=== PATIENT | female | born 1970 | race Caucasian/White ===

== ENCOUNTER 2022-05-17 07:24 | Day surgery (SDC) | payer OTHER ==
[2022-05-17] MEDS ORDERED: Propofol 200 MG/20 ML SDV ONE (07:50)
[2022-05-17] MEDS ORDERED: fentaNYL 50 MCG/ML SDV ONE (07:50)
[2022-05-17] MEDS ORDERED: Midazolam 1 MG/ML 2 ML SDV ONE (07:50)
[2022-05-17] MEDS ORDERED: Cyanocobalamin (Vitamin B12) 1,000 MCG/ML SDV IM ONE (08:15)
[2022-05-17] MEDS ORDERED: Lactated Ringers 1,000 ML IV SCH (08:15)
[2022-05-17] MEDS ORDERED: Glycopyrrolate 0.2 MG/ML 2 ML SDV IVPUSH ONE (08:45)
[2022-05-17] MEDS ORDERED: MVI, Adult with Vitamin K 10 ML, Thiamine 200 MG, Zinc/Copper/Manganese/Selenium 1 ML i... IV ONE ×4 (09:15)
[2022-05-17] MEDS ORDERED: Benzocaine/Cetylpyridinium/Menthol Lozenge MUCMEM PRN (10:34)
== END 2022-05-17 10:57 | disposition home or self-care (01) ==
LOC: JP.SDS 07:24
PROVIDERS: ATTEND Surgery
DX: K21.9 Gastro-esophageal reflux disease without esophagitis (principal); K44.9 Diaphragmatic hernia without obstruction or gangrene; F32.A Depression, unspecified; F41.1 Generalized anxiety disorder; E66.9 Obesity, unspecified; Z68.41 Body mass index [BMI] 40.0-44.9, adult; Z95.5 Presence of coronary angioplasty implant and graft; Z98.84 Bariatric surgery status; Z79.899 Other long term (current) drug therapy; Z91.040 Latex allergy status
CPT/HCPCS: 43239; 87081; J2250; J2704; J3010; J3411; J3420; J3490; J7120

== ENCOUNTER 2022-07-01 08:15 | Inpatient (IN) | payer OTHER ==
[~2022-07-01 08:15] MED LIST: Dexamethasone 4 MG/ML SDV ONE; Glycopyrrolate 0.2 MG/ML 5 ML MDV ONE; Neostigmine Methylsulfate 1 MG/ML 5 ML Syringe ONE; Ondansetron 4 MG/2 ML SDV ONE; Propofol 200 MG/20 ML SDV ONE; Rocuronium 50 MG/5 ML Vial ONE; Succinylcholine 200 MG/10 ML MDV ONE; fentaNYL 250 MCG/5 ML SDV ONE
[2022-07-01] MEDS ORDERED: Donepezil 10 MG Tab PO ONE (08:30)
[2022-07-01] MEDS ORDERED: Celecoxib 200 MG Cap PO ONE (08:30)
[2022-07-01] MEDS ORDERED: Scopolamine 1.5 MG Transdermal Patch TOP SCH (08:30)
[2022-07-01] MEDS ORDERED: Dextrose 5%-Lactated Ringers 1,000 ML IV SCH (09:30)
[2022-07-01] MEDS ORDERED: cefOXitin 2 GM Vial ONE (09:44)
[2022-07-01] MEDS ORDERED: cefOXitin 2 GM in Sodium Chloride 0.9% 50 ML IV ONE (10:00)
[2022-07-01] MEDS ORDERED: Ketamine 500 MG/5 ML MDV IV SCH (10:15)
[2022-07-01] MEDS ORDERED: Ropivacaine 46 ML, dexAMETHasone 8 MG, EPINEPHrine 0.4 MG, Sodium Chloride 0.9% 31.6 ML NERVRT SCH ×4 (10:15)
[2022-07-01] MEDS ORDERED: Ketamine 14 MG in Sodium Chloride 0.9% 19.86 ML IV SCH (10:15)
[2022-07-01] MEDS ORDERED: fentaNYL 250 MCG/5 ML SDV ONE (11:29)
[2022-07-01] MEDS ORDERED: Labetalol 20 MG/4 ML Syringe ONE (11:33)
[2022-07-01] MEDS ORDERED: Rocuronium 50 MG/5 ML Vial ONE (11:54)
[2022-07-01] MEDS ORDERED: Lactated Ringers 1,000 ML ONE (12:08)
[2022-07-01] MEDS ORDERED: hydrOXYzine HCl 50 MG/ML SDV IM ONE (13:22)
[2022-07-01] MEDS ORDERED: diphenhydrAMINE 50 MG/ML SDV IVPUSH PRN (14:00)
[2022-07-01] MEDS ORDERED: Labetalol 20 MG/4 ML Syringe IVPUSH PRN (14:00)
[2022-07-01] MEDS ORDERED: HYDROmorphone 1 MG/ML Syringe IV PRN (14:00)
[2022-07-01] MEDS ORDERED: HYDROmorphone 0.5 MG/0.5 ML Syringe IVPUSH PRN (14:00)
[2022-07-01] MEDS ORDERED: Acetaminophen 500 MG Tab PO PRN (14:00)
[2022-07-01] MEDS ORDERED: hydrOXYzine HCl 50 MG/ML SDV IM PRN (14:00)
[2022-07-01] MEDS ORDERED: Metoclopramide 10 MG/2 ML SDV IVPUSH PRN (14:00)
[2022-07-01] MEDS ORDERED: Ondansetron 4 MG/2 ML SDV IVPUSH PRN (14:00)
[2022-07-01] MEDS: oxyCODONE 5 MG Tab PO PRN ×2 (14:27→20:15)
[2022-07-01] MEDS ORDERED: MVI, Adult with Vitamin K 10 ML, Thiamine 200 MG, Zinc/Copper/Manganese/Selenium 1 ML i... IV SCH ×4 (16:00)
[2022-07-01] MEDS ORDERED: Pantoprazole 40 MG Vial IVPUSH SCH (16:00)
[2022-07-01] MEDS: cefOXitin 2 GM in Sodium Chloride 0.9% 50 ML IV SCH ×2 (16:25→21:58)
[2022-07-01] MEDS: traMADol 50 MG Tab PO PRN ×2 (17:20→22:43)
[2022-07-01] MEDS: Heparin Sodium 5,000 Units/ML Vial SUBCUT SCH (18:06)
[2022-07-01] MEDS: Acetaminophen 500 MG Tab PO SCH (20:08)
[2022-07-01] MEDS: Venlafaxine 75 MG Tab PO SCH (20:08)
[2022-07-01] MEDS: Propranolol 80 MG Cap.ER PO SCH (20:09)
[2022-07-01] MEDS ORDERED: Naltrexone 50 MG Tab PO SCH (21:00)
[2022-07-01] MEDS: Dextrose 5%-Lactated Ringers 1,000 ML IV SCH (21:58)
[2022-07-02] MEDS ORDERED: Iopamidol 612 MG/ML 30 ML SDV PO STA (00:30)
[2022-07-02] MEDS ORDERED: Benzocaine/Cetylpyridinium/Menthol Lozenge MUCMEM PRN (01:25)
[2022-07-02] MEDS: Acetaminophen 500 MG Tab PO SCH ×3 (03:41→21:50)
[2022-07-02] MEDS: cefOXitin 2 GM in Sodium Chloride 0.9% 50 ML IV SCH ×2 (03:45→09:05)
[2022-07-02] MEDS: Dextrose 5%-Lactated Ringers 1,000 ML IV SCH (05:55)
[2022-07-02] MEDS: Heparin Sodium 5,000 Units/ML Vial SUBCUT SCH ×2 (05:55→17:16)
[2022-07-02] MEDS: oxyCODONE 5 MG Tab PO PRN ×2 (05:58→21:50)
[2022-07-02] MEDS ORDERED: Dextrose 5%-Lactated Ringers 1,000 ML IV SCH (07:45)
[2022-07-02] MEDS: Celecoxib 200 MG Cap PO SCH ×2 (09:05→21:51)
[2022-07-02] MEDS: Venlafaxine 75 MG Tab PO SCH ×2 (09:05→21:52)
[2022-07-02] MEDS: Ondansetron 4 MG Tab.DIS PO PRN (09:05)
[2022-07-02] MEDS: hydrOXYzine HCl 25 MG Tab PO PRN ×2 (09:05→21:48)
[2022-07-02] MEDS: SCOPOLAMINE PATCH CHECK TOP SCH (09:07)
[2022-07-02] MEDS: traMADol 50 MG Tab PO PRN (13:36)
[2022-07-02] MEDS: Cyclobenzaprine 10 MG Tab PO PRN (14:37)
[2022-07-02] MEDS ORDERED: MVI, Adult with Vitamin K 10 ML, Thiamine 200 MG, Zinc/Copper/Manganese/Selenium 1 ML i... IV SCH ×4 (16:00)
[2022-07-02] MEDS ORDERED: Pantoprazole 40 MG Delayed-Release Granules 1 Packet PO SCH (16:30)
[2022-07-02] MEDS: Pantoprazole 40 MG Tab.CR PO SCH (17:22)
[2022-07-02] MEDS: Propranolol 80 MG Cap.ER PO SCH (21:52)
[2022-07-03] MEDS: Acetaminophen 500 MG Tab PO SCH ×3 (03:17→19:42)
[2022-07-03] MEDS: Heparin Sodium 5,000 Units/ML Vial SUBCUT SCH ×3 (07:36→17:27)
[2022-07-03] MEDS ORDERED: Cyanocobalamin (Vitamin B12) 1,000 MCG/ML SDV IM ONE (09:00)
[2022-07-03] MEDS: oxyCODONE 5 MG Tab PO PRN (09:09)
[2022-07-03] MEDS: SCOPOLAMINE PATCH CHECK TOP SCH (09:10)
[2022-07-03] MEDS: Celecoxib 200 MG Cap PO SCH ×2 (09:10→21:04)
[2022-07-03] MEDS: Venlafaxine 75 MG Tab PO SCH ×2 (09:10→21:05)
[2022-07-03] MEDS: Docusate Sodium 100 MG Cap PO SCH ×2 (11:20→21:04)
[2022-07-03] MEDS: Magnesium Hydroxide 400 MG/5 ML Susp 30 ML Cup PO SCH (11:20)
[2022-07-03] MEDS: Bisacodyl 5 MG Tab PO SCH ×2 (11:20→21:04)
[2022-07-03] MEDS: Pantoprazole 40 MG Tab.CR PO SCH (16:25)
[2022-07-03] MEDS: hydrOXYzine HCl 25 MG Tab PO PRN (16:27)
[2022-07-03] MEDS: Ondansetron 4 MG Tab.DIS PO PRN (16:30)
[2022-07-03] MEDS: Propranolol 80 MG Cap.ER PO SCH (21:05)
[2022-07-04] MEDS: Acetaminophen 500 MG Tab PO SCH ×3 (03:47→20:44)
[2022-07-04] MEDS: Ondansetron 4 MG Tab.DIS PO PRN (04:51)
[2022-07-04] MEDS: Cyclobenzaprine 10 MG Tab PO PRN ×2 (06:06→23:39)
[2022-07-04] MEDS: Heparin Sodium 5,000 Units/ML Vial SUBCUT SCH ×3 (06:06→17:45)
[2022-07-04] MEDS: hydrOXYzine HCl 25 MG Tab PO PRN ×4 (08:07→20:49)
[2022-07-04] MEDS: Magnesium Hydroxide 400 MG/5 ML Susp 30 ML Cup PO SCH (08:08)
[2022-07-04] MEDS: Docusate Sodium 100 MG Cap PO SCH (08:08)
[2022-07-04] MEDS: Venlafaxine 75 MG Tab PO SCH ×2 (08:08→20:44)
[2022-07-04] MEDS: Celecoxib 200 MG Cap PO SCH ×2 (08:08→20:44)
[2022-07-04] MEDS: Bisacodyl 5 MG Tab PO SCH (08:08)
[2022-07-04] MEDS: Pantoprazole 40 MG Tab.CR PO SCH (16:49)
[2022-07-04] MEDS: traMADol 50 MG Tab PO PRN (19:09)
[2022-07-04] MEDS: Propranolol 80 MG Cap.ER PO SCH (20:45)
[2022-07-05] MEDS: Acetaminophen 500 MG Tab PO SCH ×2 (03:27→12:46)
[2022-07-05] MEDS: hydrOXYzine HCl 25 MG Tab PO PRN ×2 (03:27→11:36)
[2022-07-05] MEDS: Heparin Sodium 5,000 Units/ML Vial SUBCUT SCH (05:49)
[2022-07-05] MEDS: Celecoxib 200 MG Cap PO SCH (08:15)
[2022-07-05] MEDS: Venlafaxine 75 MG Tab PO SCH (08:15)
== END 2022-07-05 13:00 | disposition home or self-care (01) | DRG 327 ==
LOC: JP.SDSSCHI 08:24 → JP.MS 13:00
PROVIDERS: ADMIT Surgery; ATTEND Surgery
PROC: 0D164ZA Bypass Stomach to Jejunum, Percutaneous Endoscopic Approach (ICD-10-PCS; principal; 2022-07-01)
PROC: 0DT84ZZ Resection of Small Intestine, Percutaneous Endoscopic Approach (ICD-10-PCS; 2022-07-01)
PROC: 0BUT4JZ Supplement Diaphragm with Synthetic Substitute, Percutaneous Endoscopic Approach (ICD-10-PCS; 2022-07-01)
DX: K44.9 Diaphragmatic hernia without obstruction or gangrene (principal); K55.9 Vascular disorder of intestine, unspecified; K21.9 Gastro-esophageal reflux disease without esophagitis; F41.9 Anxiety disorder, unspecified; F32.A Depression, unspecified; D50.9 Iron deficiency anemia, unspecified; H81.10 Benign paroxysmal vertigo, unspecified ear; G25.81 Restless legs syndrome; Z90.3 Acquired absence of stomach [part of]; Z91.040 Latex allergy status
CPT/HCPCS: 36415; 74240; 82947; 86850; 86900; 86901; 88307; A9270-GY; C1781; C9113; J0131; J0171; J0330; J0694; J1100; J1644; J2405; J2704; J2710; J2795; J3010; J3410; J3411; J3420; J3490; J7120; J7121; Q0162; Q9967

== ENCOUNTER 2022-07-24 04:15 | Inpatient (IN) | payer OTHER ==
[2022-07-24] MEDS ORDERED: Naloxone 0.4 MG/ML SDV IVPUSH PRN (04:22)
[2022-07-24] MEDS ORDERED: Ondansetron 4 MG/2 ML SDV IVPUSH PRN ×2 (04:22→13:00)
[2022-07-24] MEDS ORDERED: diphenhydrAMINE 50 MG/ML SDV IVPUSH PRN ×2 (04:22→13:00)
[2022-07-24] MEDS ORDERED: diphenhydrAMINE 25 MG Cap PO PRN (04:22)
[2022-07-24] MEDS ORDERED: Lactated Ringers 1,000 ML IV SCH (04:30)
[2022-07-24] MEDS: HYDROmorphone/Normal Saline 6 MG/30 ML PCA Vial IV PRN (04:32)
[2022-07-24] MEDS ORDERED: LORazepam 2 MG/ML SDV IVPUSH PRN (05:05)
[2022-07-24] MEDS ORDERED: cefOXitin 2 GM in Sodium Chloride 0.9% 50 ML IV ONE (06:31)
[2022-07-24] MEDS ORDERED: Bupivacaine 0.5% 50 ML MDV ONE (06:45)
[2022-07-24] MEDS ORDERED: Meropenem 500 MG SDV ONE ×2 (06:45→09:10)
[2022-07-24] MEDS ORDERED: Lidocaine 1% with EPINEPHrine 1:100,000 50 ML MDV ONE (06:46)
[2022-07-24] MEDS ORDERED: fentaNYL 250 MCG/5 ML SDV ONE ×2 (06:50→08:01)
[2022-07-24] MEDS ORDERED: Ondansetron 4 MG/2 ML SDV ONE (06:51)
[2022-07-24] MEDS ORDERED: Propofol 200 MG/20 ML SDV ONE (06:51)
[2022-07-24] MEDS ORDERED: Rocuronium 50 MG/5 ML Vial ONE ×2 (06:51→09:46)
[2022-07-24] MEDS ORDERED: Succinylcholine 200 MG/10 ML MDV ONE (06:51)
[2022-07-24] MEDS ORDERED: Glycopyrrolate 0.2 MG/ML 5 ML MDV ONE (06:51)
[2022-07-24] MEDS ORDERED: Dexamethasone 4 MG/ML SDV ONE (06:51)
[2022-07-24] MEDS ORDERED: Neostigmine Methylsulfate 1 MG/ML 5 ML Syringe ONE (06:51)
[2022-07-24] MEDS ORDERED: Ketamine 500 MG/5 ML MDV IV SCH (08:00)
[2022-07-24] MEDS ORDERED: Ropivacaine 44 ML, dexAMETHasone 8 MG, EPINEPHrine 0.4 MG, Sodium Chloride 0.9% 33.6 ML NERVRT SCH ×4 (08:00)
[2022-07-24] MEDS ORDERED: Ketamine 14 MG in Sodium Chloride 0.9% 19.86 ML IV SCH (08:00)
[2022-07-24] MEDS ORDERED: Lactated Ringers 1,000 ML ONE ×2 (08:11→10:07)
[2022-07-24] MEDS ORDERED: Labetalol 20 MG/4 ML Syringe ONE (08:31)
[2022-07-24] MEDS ORDERED: fentaNYL 100 MCG/2 ML SDV ONE (10:58)
[2022-07-24] MEDS ORDERED: Linezolid 600 MG/300 ML Premix Bag IRR ONE (11:00)
[2022-07-24] MEDS ORDERED: Scopolamine 1.5 MG Transdermal Patch TRDERM PRN (11:38)
[2022-07-24] MEDS ORDERED: Cyclobenzaprine 10 MG Tab PO PRN (12:49)
[2022-07-24] MEDS ORDERED: Albuterol/Ipratropium 3.0-0.5 MG/3 ML Neb Soln INH PRN (12:52)
[2022-07-24] MEDS ORDERED: hydrOXYzine HCl 50 MG/ML SDV IM PRN (13:00)
[2022-07-24] MEDS ORDERED: Acetaminophen 500 MG Tab PO PRN (13:00)
[2022-07-24] MEDS ORDERED: Metoclopramide 10 MG/2 ML SDV IVPUSH PRN (13:00)
[2022-07-24] MEDS: cefOXitin 2 GM in Sodium Chloride 0.9% 50 ML IV SCH ×2 (13:28→21:48)
[2022-07-24] MEDS: Dextrose 5%-Lactated Ringers 1,000 ML IV SCH ×3 (13:29→23:31)
[2022-07-24] MEDS: Pantoprazole 40 MG Vial IVPUSH SCH (14:05)
[2022-07-24] MEDS: MVI, Adult with Vitamin K 10 ML, Thiamine 200 MG, Zinc/Copper/Manganese/Selenium 1 ML i... IV SCH ×4 (16:10)
[2022-07-24 16:30] LABS: BASOPHILS ABSOLUTE AUTO 0.03 K/uL (0.00-0.10); BASOPHILS PERCENT AUTO 0.1 % (0.1-1.3); HEMATOCRIT 42.5 % (34.3-46.0); HEMOGLOBIN 14.2 g/dL (11.2-15.5); IMMATURE GRAN ABSOLUTE AUTO 0.12 K/uL (0.00-0.23); IMMATURE GRAN PERCENT AUTO 0.6 % (0.0-0.7); LYMPHOCYTES ABSOLUTE AUTO 0.87 K/uL (0.8-3.3); LYMPHOCYTES PERCENT AUTO 4.1 % (11.4-47.7); MEAN CORPUSCULAR HEMOGLOBIN 30.1 pg (31.6-35.5); MEAN CORPUSCULAR HGB CONC 33.4 g/dL (31.6-35.5); MEAN CORPUSCULAR VOLUME 90.2 fL (81.4-99.0); MONOCYTES ABSOLUTE AUTO 1.84 K/uL (0.20-0.90); MONOCYTES PERCENT AUTO 8.7 % (3.3-12.6); NEUTROPHILS ABSOLUTE AUTO 18.37 K/uL (1.0-7.6); NEUTROPHILS PERCENT AUTO 86.5 % (40.0-78.1); PLATELET COUNT,PLT 316 K/uL (130-375); RED BLOOD CELL COUNT 4.71 M/uL (3.77-5.24)
[2022-07-24 16:34] LABS: WHITE BLOOD CELL COUNT,WBC 21.2 K/uL (3.2-11.0)
[2022-07-24] MEDS: Acetaminophen 500 MG Tab PO SCH (18:19)
[2022-07-24] MEDS: Labetalol 20 MG/4 ML Syringe IVPUSH PRN ×2 (20:31→21:13)
[2022-07-25] MEDS: Labetalol 20 MG/4 ML Syringe IVPUSH PRN ×4 (00:27→10:08)
[2022-07-25] MEDS: Acetaminophen 500 MG Tab PO SCH ×3 (02:20→17:32)
[2022-07-25] MEDS: cefOXitin 2 GM in Sodium Chloride 0.9% 50 ML IV SCH ×4 (02:25→21:18)
[2022-07-25] MEDS: HYDROmorphone/Normal Saline 6 MG/30 ML PCA Vial IV PRN (02:29)
[2022-07-25] MEDS ORDERED: Iopamidol 612 MG/ML 50 ML SDV PO ONE (04:00)
[2022-07-25 05:04] LABS: BASOPHILS ABSOLUTE AUTO 0.03 K/uL (0.00-0.10); BASOPHILS PERCENT AUTO 0.1 % (0.1-1.3); HEMATOCRIT 39.1 % (34.3-46.0); HEMOGLOBIN 13.2 g/dL (11.2-15.5); IMMATURE GRAN ABSOLUTE AUTO 0.14 K/uL (0.00-0.23); IMMATURE GRAN PERCENT AUTO 0.7 % (0.0-0.7); LYMPHOCYTES ABSOLUTE AUTO 1.76 K/uL (0.8-3.3); LYMPHOCYTES PERCENT AUTO 8.8 % (11.4-47.7); MEAN CORPUSCULAR HEMOGLOBIN 30.3 pg (31.6-35.5); MEAN CORPUSCULAR HGB CONC 33.8 g/dL (31.6-35.5); MEAN CORPUSCULAR VOLUME 89.7 fL (81.4-99.0); MONOCYTES ABSOLUTE AUTO 2.64 K/uL (0.20-0.90); MONOCYTES PERCENT AUTO 13.2 % (3.3-12.6); NEUTROPHILS ABSOLUTE AUTO 15.45 K/uL (1.0-7.6); NEUTROPHILS PERCENT AUTO 77.2 % (40.0-78.1); PLATELET COUNT,PLT 283 K/uL (130-375); RED BLOOD CELL COUNT 4.36 M/uL (3.77-5.24)
[2022-07-25 05:34] LABS: A/G RATIO 0.7 (1.2-2.2); ALANINE AMINOTRANSFERASE,ALT 713 U/L (12-78); ALBUMIN 2.3 g/dL (3.4-5.0); ALKALINE PHOSPHATASE 147 U/L (46-116); ASPARTATE AMNIOTRANSFERASE,AST 433 U/L (15-37); BILIRUBIN TOTAL 0.5 mg/dL (0.2-1.0); BLOOD UREA NITROGEN,BUN 12 mg/dL (7-18); CALCIUM 8.4 mg/dL (8.5-10.1); CARBON DIOXIDE,CO2 25 mmol/L (21-32); CHLORIDE,CL 109 mmol/L (100-108); CREATININE 1.1 mg/dL (0.6-1.0); ESTIMATED GFR 60 mL/min (>60); GLUCOSE RANDOM 178 mg/dL (74-106); MAGNESIUM 1.6 mg/dL (1.8-2.4); POTASSIUM,K 4.3 mmol/L (3.6-5.2); PRO B-TYPE NATRIUR PEPT,BNPPRO 97 pg/mL (5-125); PROTEIN TOTAL,TP 5.5 g/dL (6.4-8.2); SODIUM,NA 141 mmol/L (140-148)
[2022-07-25 05:35] LABS: ANION GAP 11.3 mmol/L (5.0-14.0)
[2022-07-25] MEDS ORDERED: Dextrose 5%-Lactated Ringers 1,000 ML IV SCH (08:30)
[2022-07-25] MEDS ORDERED: Sodium Chloride 0.9% 500 ML IV ONE (08:36)
[2022-07-25] MEDS ORDERED: Lactated Ringers 500 ML IV ONE ×4 (08:45→18:15)
[2022-07-25] MEDS: Docusate Sodium 100 MG Cap PO SCH ×2 (09:14→21:21)
[2022-07-25] MEDS: Celecoxib 200 MG Cap PO SCH ×2 (09:14→21:20)
[2022-07-25] MEDS: SCOPOLAMINE PATCH CHECK TOP SCH ×2 (09:15→11:00)
[2022-07-25] MEDS: Bisacodyl 5 MG Tab PO SCH ×2 (09:15→21:21)
[2022-07-25] MEDS: Magnesium Sulfate/Water 2 GM in Premix Bag 1 BAG IV SCH ×2 (09:35→16:03)
[2022-07-25] MEDS: Pantoprazole 40 MG Vial IVPUSH SCH (14:45)
[2022-07-25] MEDS: MVI, Adult with Vitamin K 10 ML, Thiamine 200 MG, Zinc/Copper/Manganese/Selenium 1 ML i... IV SCH ×4 (16:02)
[2022-07-26] MEDS: Dextrose 5%-Lactated Ringers 1,000 ML IV SCH ×4 (00:24→21:06)
[2022-07-26] MEDS: cefOXitin 2 GM in Sodium Chloride 0.9% 50 ML IV SCH (01:55)
[2022-07-26] MEDS: Acetaminophen 500 MG Tab PO SCH ×4 (02:01→17:00)
[2022-07-26] MEDS: HYDROmorphone/Normal Saline 6 MG/30 ML PCA Vial IV PRN (03:59)
[2022-07-26] MEDS: Magnesium Sulfate/Water 2 GM in Premix Bag 1 BAG IV SCH ×6 (04:02→21:00)
[2022-07-26] MEDS: Celecoxib 200 MG Cap PO SCH ×2 (08:29→20:54)
[2022-07-26] MEDS: Docusate Sodium 100 MG Cap PO SCH ×2 (08:29→20:54)
[2022-07-26] MEDS: SCOPOLAMINE PATCH CHECK TOP SCH (08:30)
[2022-07-26] MEDS: Bisacodyl 5 MG Tab PO SCH ×2 (08:35→20:54)
[2022-07-26] MEDS ORDERED: Lactated Ringers 500 ML IV ONE (09:00)
[2022-07-26] MEDS ORDERED: Cyanocobalamin (Vitamin B12) 1,000 MCG/ML SDV IM ONE (09:00)
[2022-07-26] MEDS: Pantoprazole 40 MG Vial IVPUSH SCH (14:22)
[2022-07-27] MEDS: Acetaminophen 500 MG Tab PO SCH ×3 (02:00→17:22)
[2022-07-27] MEDS: Dextrose 5%-Lactated Ringers 1,000 ML IV SCH ×2 (03:14→12:34)
[2022-07-27] MEDS: Magnesium Sulfate/Water 2 GM in Premix Bag 1 BAG IV SCH (04:06)
[2022-07-27 04:33] LABS: HEMATOCRIT 28.1 % (34.3-46.0); HEMOGLOBIN 9.4 g/dL (11.2-15.5); MEAN CORPUSCULAR HEMOGLOBIN 30.2 pg (31.6-35.5); MEAN CORPUSCULAR HGB CONC 33.5 g/dL (31.6-35.5); MEAN CORPUSCULAR VOLUME 90.4 fL (81.4-99.0); RED BLOOD CELL COUNT 3.11 M/uL (3.77-5.24); WHITE BLOOD CELL COUNT,WBC 16.8 K/uL (3.2-11.0)
[2022-07-27 04:58] LABS: A/G RATIO 0.6 (1.2-2.2); ALANINE AMINOTRANSFERASE,ALT 217 U/L (12-78); ALBUMIN 1.9 g/dL (3.4-5.0); ALKALINE PHOSPHATASE 107 U/L (46-116); ASPARTATE AMNIOTRANSFERASE,AST 76 U/L (15-37); BILIRUBIN TOTAL 0.3 mg/dL (0.2-1.0); BLOOD UREA NITROGEN,BUN 6 mg/dL (7-18); CALCIUM 7.4 mg/dL (8.5-10.1); CARBON DIOXIDE,CO2 29 mmol/L (21-32); CHLORIDE,CL 105 mmol/L (100-108); CREATININE 0.6 mg/dL (0.6-1.0); EST CRCL DRUG DOSING (CG) 76.99 mL/min; ESTIMATED GFR 107 mL/min (>60); GLUCOSE RANDOM 105 mg/dL (74-106); PHOSPHORUS 2.1 mg/dL (2.5-4.9); POTASSIUM,K 3.3 mmol/L (3.6-5.2); PRO B-TYPE NATRIUR PEPT,BNPPRO 229 pg/mL (5-125); PROTEIN TOTAL,TP 5.2 g/dL (6.4-8.2); SODIUM,NA 140 mmol/L (140-148)
[2022-07-27 06:02] LABS: ANION GAP 9.3 mmol/L (5.0-14.0)
[2022-07-27] MEDS ORDERED: Potassium Phosphates 3 mMole/ML 15 ML SDV IV ONE (07:15)
[2022-07-27] MEDS: Celecoxib 200 MG Cap PO SCH ×2 (08:02→20:49)
[2022-07-27] MEDS: Docusate Sodium 100 MG Cap PO SCH ×2 (08:02→20:49)
[2022-07-27] MEDS: Bisacodyl 5 MG Tab PO SCH ×2 (08:03→20:49)
[2022-07-27] MEDS: SCOPOLAMINE PATCH CHECK TOP SCH (08:03)
[2022-07-27] MEDS: Potassium Phosphates 20 MMOLE in Sodium Chloride 0.9% 250 ML IV SCH ×3 (09:26→15:51)
[2022-07-27] MEDS ORDERED: Pantoprazole 40 MG Delayed-Release Granules 1 Packet PO SCH (16:30)
[2022-07-28] MEDS: Acetaminophen 500 MG Tab PO SCH ×3 (01:11→18:05)
[2022-07-28] MEDS: Dextrose 5%-Lactated Ringers 1,000 ML IV SCH (01:40)
[2022-07-28] MEDS: HYDROmorphone/Normal Saline 6 MG/30 ML PCA Vial IV PRN (04:35)
[2022-07-28 06:58] LABS: A/G RATIO 0.5 (1.2-2.2); ALANINE AMINOTRANSFERASE,ALT 159 U/L (12-78); ALBUMIN 1.7 g/dL (3.4-5.0); ALKALINE PHOSPHATASE 117 U/L (46-116); ANION GAP 8.8 mmol/L (5.0-14.0); ASPARTATE AMNIOTRANSFERASE,AST 55 U/L (15-37); BILIRUBIN TOTAL 0.3 mg/dL (0.2-1.0); BLOOD UREA NITROGEN,BUN 6 mg/dL (7-18); CALCIUM 7.6 mg/dL (8.5-10.1); CARBON DIOXIDE,CO2 28 mmol/L (21-32); CHLORIDE,CL 106 mmol/L (100-108); CREATININE 0.6 mg/dL (0.6-1.0); EST CRCL DRUG DOSING (CG) 76.99 mL/min; ESTIMATED GFR 107 mL/min (>60); GLUCOSE RANDOM 87 mg/dL (74-106); PHOSPHORUS 3.7 mg/dL (2.5-4.9); POTASSIUM,K 3.8 mmol/L (3.6-5.2); PRO B-TYPE NATRIUR PEPT,BNPPRO 130 pg/mL (5-125); PROTEIN TOTAL,TP 4.9 g/dL (6.4-8.2); SODIUM,NA 139 mmol/L (140-148)
[2022-07-28 07:00] LABS: HEMATOCRIT 27.8 % (34.3-46.0); HEMOGLOBIN 9.3 g/dL (11.2-15.5); MEAN CORPUSCULAR HEMOGLOBIN 30.4 pg (31.6-35.5); MEAN CORPUSCULAR HGB CONC 33.5 g/dL (31.6-35.5); MEAN CORPUSCULAR VOLUME 90.8 fL (81.4-99.0); RED BLOOD CELL COUNT 3.06 M/uL (3.77-5.24); WHITE BLOOD CELL COUNT,WBC 12.7 K/uL (3.2-11.0)
[2022-07-28] MEDS ORDERED: Potassium Phosphates 3 mMole/ML 15 ML SDV IV ONE (07:50)
[2022-07-28] MEDS ORDERED: Dextrose 5%-Lactated Ringers 1,000 ML IV SCH (08:00)
[2022-07-28] MEDS: Bisacodyl 5 MG Tab PO SCH ×2 (08:20→20:52)
[2022-07-28] MEDS: Docusate Sodium 100 MG Cap PO SCH ×2 (08:20→20:52)
[2022-07-28] MEDS: SCOPOLAMINE PATCH CHECK TOP SCH (08:20)
[2022-07-28] MEDS: Celecoxib 200 MG Cap PO SCH ×2 (08:20→20:54)
[2022-07-28] MEDS: Potassium Phosphates 15 MMOLE in Sodium Chloride 0.9% 250 ML IV SCH ×2 (10:00→13:05)
[2022-07-28] MEDS ORDERED: Pantoprazole 40 MG Delayed-Release Granules 1 Packet PO SCH (16:30)
[2022-07-28] MEDS: Pantoprazole 40 MG Tab.CR PO SCH (16:41)
[2022-07-29] MEDS: Acetaminophen 500 MG Tab PO SCH ×3 (02:05→17:18)
[2022-07-29 03:54] LABS: HEMATOCRIT 28.4 % (34.3-46.0); HEMOGLOBIN 9.7 g/dL (11.2-15.5); MEAN CORPUSCULAR HEMOGLOBIN 30.7 pg (31.6-35.5); MEAN CORPUSCULAR HGB CONC 34.2 g/dL (31.6-35.5); MEAN CORPUSCULAR VOLUME 89.9 fL (81.4-99.0); RED BLOOD CELL COUNT 3.16 M/uL (3.77-5.24); WHITE BLOOD CELL COUNT,WBC 10.4 K/uL (3.2-11.0)
[2022-07-29 04:16] LABS: A/G RATIO 0.6 (1.2-2.2); ALANINE AMINOTRANSFERASE,ALT 131 U/L (12-78); ALBUMIN 1.9 g/dL (3.4-5.0); ALKALINE PHOSPHATASE 126 U/L (46-116); ANION GAP 10.9 mmol/L (5.0-14.0); ASPARTATE AMNIOTRANSFERASE,AST 42 U/L (15-37); BILIRUBIN TOTAL 0.4 mg/dL (0.2-1.0); BLOOD UREA NITROGEN,BUN 5 mg/dL (7-18); CALCIUM 7.9 mg/dL (8.5-10.1); CARBON DIOXIDE,CO2 27 mmol/L (21-32); CHLORIDE,CL 105 mmol/L (100-108); CREATININE 0.7 mg/dL (0.6-1.0); EST CRCL DRUG DOSING (CG) 65.99 mL/min; ESTIMATED GFR 103 mL/min (>60); GLUCOSE RANDOM 86 mg/dL (74-106); MAGNESIUM 1.9 mg/dL (1.8-2.4); PHOSPHORUS 4.3 mg/dL (2.5-4.9); POTASSIUM,K 3.9 mmol/L (3.6-5.2); PROTEIN TOTAL,TP 5.1 g/dL (6.4-8.2); SODIUM,NA 139 mmol/L (140-148)
[2022-07-29] MEDS: oxyCODONE 5 MG Tab PO PRN ×3 (07:58→20:35)
[2022-07-29] MEDS: Celecoxib 200 MG Cap PO SCH ×2 (08:00→20:33)
[2022-07-29] MEDS: SCOPOLAMINE PATCH CHECK TOP SCH (09:55)
[2022-07-29] MEDS: Pantoprazole 40 MG Tab.CR PO SCH (15:58)
[2022-07-29] MEDS: Venlafaxine 75 MG Tab PO SCH (20:32)
[2022-07-29] MEDS: buPROPion 150 MG Tab.SR PO SCH (20:35)
[2022-07-30] MEDS: Acetaminophen 500 MG Tab PO SCH ×3 (02:42→17:16)
[2022-07-30] MEDS: oxyCODONE 5 MG Tab PO PRN ×2 (02:44→20:06)
[2022-07-30 04:37] LABS: HEMATOCRIT 28.4 % (34.3-46.0); HEMOGLOBIN 9.6 g/dL (11.2-15.5); MEAN CORPUSCULAR HEMOGLOBIN 30.6 pg (31.6-35.5); MEAN CORPUSCULAR HGB CONC 33.8 g/dL (31.6-35.5); MEAN CORPUSCULAR VOLUME 90.4 fL (81.4-99.0); RED BLOOD CELL COUNT 3.14 M/uL (3.77-5.24); WHITE BLOOD CELL COUNT,WBC 10.5 K/uL (3.2-11.0)
[2022-07-30 05:04] LABS: A/G RATIO 0.6 (1.2-2.2); ALANINE AMINOTRANSFERASE,ALT 93 U/L (12-78); ALBUMIN 1.9 g/dL (3.4-5.0); ALKALINE PHOSPHATASE 122 U/L (46-116); ASPARTATE AMNIOTRANSFERASE,AST 31 U/L (15-37); BILIRUBIN TOTAL 0.3 mg/dL (0.2-1.0); BLOOD UREA NITROGEN,BUN 8 mg/dL (7-18); CALCIUM 8.1 mg/dL (8.5-10.1); CARBON DIOXIDE,CO2 25 mmol/L (21-32); CHLORIDE,CL 105 mmol/L (100-108); CREATININE 0.7 mg/dL (0.6-1.0); EST CRCL DRUG DOSING (CG) 65.99 mL/min; ESTIMATED GFR 103 mL/min (>60); GLUCOSE RANDOM 83 mg/dL (74-106); PHOSPHORUS 4.1 mg/dL (2.5-4.9); POTASSIUM,K 3.9 mmol/L (3.6-5.2); PROTEIN TOTAL,TP 5.1 g/dL (6.4-8.2); SODIUM,NA 138 mmol/L (140-148)
[2022-07-30 05:18] LABS: ANION GAP 11.9 mmol/L (5.0-14.0)
[2022-07-30] MEDS: buPROPion 150 MG Tab.SR PO SCH ×2 (09:12→20:03)
[2022-07-30] MEDS: Celecoxib 200 MG Cap PO SCH ×2 (09:12→20:03)
[2022-07-30] MEDS: Venlafaxine 75 MG Tab PO SCH ×2 (09:12→20:04)
[2022-07-30] MEDS: SCOPOLAMINE PATCH CHECK TOP SCH (09:13)
[2022-07-30 15:10] LABS: AMYLASE,BODY FLUID 43 U/L
[2022-07-30 15:11] LABS: AMYLASE BODY FLUID TYPE JP
[2022-07-30] MEDS: Pantoprazole 40 MG Tab.CR PO SCH (17:16)
[2022-07-31] MEDS: Acetaminophen 500 MG Tab PO SCH ×2 (01:38→09:17)
[2022-07-31] MEDS: buPROPion 150 MG Tab.SR PO SCH (09:17)
[2022-07-31] MEDS: Venlafaxine 75 MG Tab PO SCH (09:17)
[2022-07-31] MEDS: SCOPOLAMINE PATCH CHECK TOP SCH (09:17)
[2022-07-31] MEDS: Celecoxib 200 MG Cap PO SCH (09:17)
== END 2022-07-31 11:15 | disposition home or self-care (01) | DRG 327 ==
LOC: JP.MS 04:15 → JP.ICU 12:28
PROVIDERS: ADMIT Surgery; ATTEND Surgery
PROC: 0BUT0JZ Supplement Diaphragm with Synthetic Substitute, Open Approach (ICD-10-PCS; principal; 2022-07-24)
PROC: 0D150ZA Bypass Esophagus to Jejunum, Open Approach (ICD-10-PCS; 2022-07-24)
PROC: 0DT80ZZ Resection of Small Intestine, Open Approach (ICD-10-PCS; 2022-07-24)
PROC: 0FB20ZZ Excision of Left Lobe Liver, Open Approach (ICD-10-PCS; 2022-07-24)
PROC: 07BP0ZZ Excision of Spleen, Open Approach (ICD-10-PCS; 2022-07-24)
PROC: 0DQ80ZZ Repair Small Intestine, Open Approach (ICD-10-PCS; 2022-07-24)
DX: K44.0 Diaphragmatic hernia with obstruction, without gangrene (principal); K43.0 Incisional hernia with obstruction, without gangrene; E83.42 Hypomagnesemia; E78.5 Hyperlipidemia, unspecified; G25.81 Restless legs syndrome; F41.9 Anxiety disorder, unspecified; F32.A Depression, unspecified; K21.9 Gastro-esophageal reflux disease without esophagitis; Z90.49 Acquired absence of other specified parts of digestive tract; Z98.890 Other specified postprocedural states; Z91.040 Latex allergy status; Z98.51 Tubal ligation status; Z87.891 Personal history of nicotine dependence
CPT/HCPCS: 36415; 36430; 71045; 71045-26; 71046; 71046-26; 74240; 74240-26; 80053; 82150; 83735; 83880; 84100; 85025; 85027; 86850; 86900; 86901; 86920; 86922; 97110-GP; 97162-GP; 97165-GO; 97530-GP; A9270-GY; C1751; C1781; C9113; J0131; J0171; J0330; J0694; J1100; J1170; J1642; J2020; J2060; J2185; J2405; J2704; J2710; J2765; J2795; J3010; J3410; J3411; J3420; J3475; J3490; J7050; J7120; J7121; P9016; Q9967; U0002